=== PATIENT | female | born 1970 | race Caucasian/White ===

== ENCOUNTER 2020-07-29 19:59 | Emergency (ER) | payer MEDICAID ==
[~2020-07-29] VITALS: Ht 167.6 cm; Wt 73.9 kg
[2020-07-29 20:06] VITALS: BP_SYST 182
[2020-07-30 00:21] VITALS: BP_SYST 145
== END 2020-07-30 00:21 | disposition home or self-care (01) ==
LOC: SED 19:59
DX: I10 Essential (primary) hypertension (principal); R51.9 Headache, unspecified; Z87.440 Personal history of urinary (tract) infections
CPT/HCPCS: 70450-TC; 76376; 99285

== ENCOUNTER 2021-07-04 09:46 | Emergency (ER) | payer MEDICAID ==
[~2021-07-04] VITALS: Ht 167.6 cm; Wt 72.6 kg
[2021-07-04 09:57] VITALS: BP_SYST 155
--- NOTE | 2021-07-04 10:05 | NUR ---
Patient placed in bed 4 and placed in gown. Pt on manager cardiac cath and vitals stable. Safety precautions in place.
--- NOTE | 2021-07-04 10:12 | NUR ---
Dr. Dorsey at bedside.
--- NOTE | 2021-07-04 10:14 | NUR ---
Patient is a 51 y/o female who came in from home with C/O a headache and neck pain at a 10/10. She reported feeling a burning and tingling sensation at her neck and it does not radiate. Pt states that the pain started about a week ago and has been using ibuporfen at home for pain relief. Pt is A & O x 4, is ambulatory, and follows commands. History of hyperntension uses medication for management. Patient is on cardiac surgeon and safety precautions are in place.
[2021-07-04] MEDS ORDERED: KETOROLAC TROMETHAMINE 60 MG/2 ML VIAL IM ONE (10:15)
--- NOTE | 2021-07-04 10:24 | NUR ---
Patient transported to radiology by ambulation, accompanied by tap and die maker technician.
--- NOTE | 2021-07-04 10:30 | NUR ---
Patient returned from x-ray, accompanied by cardiac technician.
[2021-07-04] MEDS ORDERED: NAPR-688 PO (12:18)
[2021-07-04] MEDS ORDERED: CLON0.5T4 PO (12:18)
--- NOTE | 2021-07-04 12:32 | NUR ---
Pt states she feels better at this time
[2021-07-04 12:40] VITALS: BP_SYST 133
--- NOTE | 2021-07-04 12:43 | NUR ---
Patient given written and verbal discharge instructions and verbalizes understanding. ER Dr. Dorsey discussed with patient the results and treatment provided. Patient in stable condition. ID arm band removed. Rx of given. Patient educated on pain management and to follow up with PMD. Pain Scale 3. Opportunity for questions provided and answered. Medication side effect fact sheet provided.
== END 2021-07-04 12:43 | disposition home or self-care (01) ==
LOC: SED 09:46
DX: M47.812 Spondylosis without myelopathy or radiculopathy, cervical region (principal); I10 Essential (primary) hypertension; Z79.899 Other long term (current) drug therapy; Z88.8 Allergy status to other drugs, medicaments and biological substances
CPT/HCPCS: 72040; 96372; 99283; J1885

== ENCOUNTER 2022-11-11 22:50 | Emergency (ER) | payer MEDICAID ==
[~2022-11-11] VITALS: Ht 167.6 cm; Wt 73.5 kg
[~2022-11-11 22:50] MED LIST: CLON0.5T4 PO; NAPR-688 PO
[2022-11-11 23:37] VITALS: BP_SYST 159; PULSE 72; RESP 19; TEMP 97.3; O2SAT 100
[2022-11-11 23:52] LABS: BILIRUBIN,URINE NEGATIVE (NEGATIVE); BLOOD, URINE 3+ (NEGATIVE); COLOR,URINE ORANGE (YELLOW); GLUCOSE,URINE TRACE (NEGATIVE); KETONES,URINE NEGATIVE (NEGATIVE); LEUKOCYTE ESTERASE ,URINE 3+ (NEGATIVE); NITRITE, URINE POSITIVE (NEGATIVE); PROTEIN URINE 1+ (NEGATIVE)
[2022-11-12 00:12] LABS: CLARITY/URINE SLIGHTLY CLOUDY (CLEAR)
[2022-11-12 00:14] LABS: BACTERIA,URINE MODERATE /HPF (None Seen); WBC,URINE 80-100 /HPF (0-3)
[2022-11-12] MEDS ORDERED: CIPR500T5 PO (00:26)
[2022-11-12] MEDS ORDERED: cefTRIAXone 1 GM in LIDOCAINE 1%, 20 ML MDV 2.1 ML IM ONE (00:30)
[2022-11-12] MEDS ORDERED: KETOROLAC TROMETHAMINE 60 MG/2 ML VIAL IM ONE (00:30)
[2022-11-12] MEDS ORDERED: PHEN-727 PO (00:34)
[2022-11-12 00:52] VITALS: BP_SYST 134; PULSE 79; RESP 17; TEMP 98; O2SAT 98
== END 2022-11-12 00:52 | disposition home or self-care (01) ==
LOC: SED 22:50
DX: N39.0 Urinary tract infection, site not specified (principal); R30.9 Painful micturition, unspecified; R10.30 Lower abdominal pain, unspecified; I10 Essential (primary) hypertension; Z88.1 Allergy status to other antibiotic agents; Z79.899 Other long term (current) drug therapy
CPT/HCPCS: 99284; 81000; 87086; 96372; J0696; J1885; J2001